=== PATIENT | male | born 1955 | race Caucasian/White ===

== ENCOUNTER 2020-06-14 12:36 | Outpatient (CLI) | payer MEDICARE, SELFPAY ==
[2020-06-14 13:12] LABS: Anion Gap 8 mmol/L (8-16); Blood Urea Nitrogen 11 mg/dL (9-20); Calcium 9.3 mg/dL (8.4-10.2); Carbon Dioxide 25 mmol/L (22-30); Chloride 104 mmol/L (98-107); Estimated Glomerular Filt Rate > 60; Glucose 147 mg/dL (75-110); Potassium 3.4 mmol/L (3.4-5.0); Sodium 137 mmol/L (137-145)
== END 2020-06-14 12:37 | disposition home or self-care (01) ==
PROVIDERS: Anesthesiology; PCP Internal Medicine Gastroenterology; Visit Provider Urology
DX: Z01.818 Encounter for other preprocedural examination (principal); R35.8 Other polyuria
CPT/HCPCS: 36415; 80048

== ENCOUNTER 2020-06-18 00:33 | Outpatient (CLI) | payer MEDICARE, SELFPAY ==
[2020-06-18 21:19] LABS: SARS-CoV-2 RNA PCR Negative
== END 2020-06-18 00:34 | disposition home or self-care (01) ==
LOC: ANHCOVIDDT 00:34
PROVIDERS: PCP Internal Medicine Gastroenterology; Visit Provider Urology
DX: Z01.812 Encounter for preprocedural laboratory examination (principal); Z20.828 Contact with and (suspected) exposure to other viral communicable diseases
CPT/HCPCS: 87635; C9803; U0003

== ENCOUNTER 2020-06-21 00:34 | Day surgery (SDC) | payer MEDICARE, SELFPAY ==
[2020-06-13 14:09] VITALS: BMI 30.8
[2020-06-21] VITALS (7 sets, daily range): BP systolic 94–129; BP diastolic 55–80; PULSE 66–75; RESP 12–20; TEMP 36.2; O2SAT 99–100
--- NOTE | 2020-06-21 09:24 | ECG_ITS ---
Measurements Intervals [place] Rate: 67 P: 52 [place]: 184 QRS: 20 QRSD: 144 T: 52 QT: 457 QTc: 483 Interpretive Statements SINUS RHYTHM RIGHT BUNDLE BRANCH BLOCK ABNORMAL ECG Electronically Signed On 06-21-2020 11:57:52 TECHNOLOGY ENGINEER by Lio Galvez D.O.
[2020-06-21] MEDS: LACTATED RINGERS 1,000 ML 30 ML IV CONT (11:07)
--- NOTE | 2020-06-21 11:46 | WPDANESEPPF ---
Anes - Initial Pre Proc Eval Procedure: Operation Date: 06/21/20 12:30 Proposed Procedures p CO2 Laser Penile Condyloma, Possible Excision - Russel Anderson MD Date/Time: 06/21/20 11:46 Surgeon: Russel Anderson MD Pre Op Diagnosis: penile condyloma Patient Data Age: 64 Gender: M Height: 1.78 m Weight: 96.6 kg Last Vital Signs Temp 36.2 C L 06/21/20 10:35 Pulse 66 06/21/20 10:35 Resp 20 06/21/20 10:35 BP 129/73 06/21/20 10:35 Pulse Ox 99 06/21/20 10:35 Allergies Allergy/AdvReac Type Severity Reaction Status Date / Time No Known Allergies Allergy Unknown Unverified 06/21/20 10:39 Home Medications Medication Instructions Recorded Confirmed Type B-complex with vitamin C [Super B 1 tablet PO DAILY 06/13/20 06/21/20 History Complex + C] folic acid 1 mg PO QAM 06/13/20 06/21/20 History furosemide 20 mg PO QAM 06/13/20 06/21/20 History levothyroxine [Synthroid] 50 mcg PO QAM 06/13/20 06/21/20 History spironolactone 25 mg PO QPM 06/13/20 06/21/20 History spironolactone 50 mg PO QAM 06/13/20 06/21/20 History thiamine mononitrate (vit B1) 100 mg PO QAM 06/13/20 06/21/20 History [Vitamin B-1 (mononitrate)] ECG: SINUS RHYTHM RIGHT BUNDLE BRANCH BLOCK [120+ ms QRS DURATION, UPRIGHT V1, 40+ ms S IN I/aVL/V4/V5/V6] POSSIBLE ANTERIOR MYOCARDIAL INFARCTION , PROBABLY OLD [30 ms Q WAVE IN V3/V4, OR R < 0.2 mV IN V4] NO PREVIOUS ECG AVAILABLE FOR COMPARISON Patient hx anesthesia problems: none Family hx anesthesia problems: none PMFSH Past Medical History Medical History (Updated 06/21/20 @ 11:51 by Pacheco Olsen MD) Cirrhosis Hypothyroidism Obesity Osteoarthritis Tobacco abuse Family History Family History (Updated 09/10/16 @ 14:42 by DOCTOR UNKNOWN) Other Family history of arthritis Family history of gout Family history of malignant neoplasm Family history of seizure disorder Hypertension Social History Social History Smoking packs per day: 1.5 Smoking cigarettes per day: 30.0 Years smoked: 50 Smoking pack-years: 75.00 Smoking status: Former smoker Tobacco type: cigarettes Smoking end date: 05/11/20 Alcohol intake: former Drinks per week: 40 Alcohol use details: STOPPED DRINKING Living arrangements: with family Spiritual care concerns: No Anes - Eval Final PreProcedure Day of Procedure 06/21/20 11:46 Patient weight: obese Heart: regular rate and rhythm Lungs: clear to auscultation and normal air movement Airway: Mallampati scale class II Neurological: alert and oriented Last oral intake: >/= 8 hours ASA classification: III Emergent: no Anesthetic plan: proceed Anesthesia type and monitoring: general LMA Informed Consent: The patient's anesthetic plan and its attendant risks and benefits were discussed with the patient/family/POA. Questions were solicited and answers provided to the satisfaction of the patient/family/POA.
--- NOTE | 2020-06-21 12:00 | SUR.PREOP ---
1155-PT AWARE SURGEON DELAYS SELF ~30 MINUTES.
--- NOTE | 2020-06-21 12:32 | WPDHPUPDATE1 ---
History and Physical Update Update Date/Time: 06/21/20 12:32 History and Physical has been reviewed, including an updated exam of the patient. There are NO changes in the patient's condition. Risks, benefits, and alternatives have been discussed and questions answered. Patient agrees to proceed with procedure.
[2020-06-21] MEDS: ceFAZolin 2 GM/D5W 50 ML 2 GM/50 ML BAG IVPB (13:15)
[2020-06-21] MEDS: LIDOCAINE HCL 1% LOCAL INJ 10 ML VIAL 30 ML INFILTRATE (13:31)
[2020-06-21] MEDS: SILVER SULFADIAZINE 1% CR 50 GM JAR (*BKC) 1 APPLIC TOPICAL (13:56)
--- NOTE | 2020-06-21 14:00 | PM.PROC ---
Procedure Note - Detailed Date of procedure: 06/21/20 Pre-op diagnosis: penile condyloma Post-op diagnosis: same Procedure performed: Excision of large penile condyloma 0.5 cm as well as CO2 laser of smaller condyloma Description of procedure: Patient is taken the operative suite and correctly identified. Once anesthesia was obtained was prepped draped in a sterile fashion. He has multiple small lesions that were taken care of using a CO2 laser. Smoke evacuator was then used during the whole case. He has 2 larger lesions were on the dorsal aspect near the penoscrotal junction. We went ahead and used the CO2 laser of the smaller 1 which was about 1 cm. We then excised the larger 1. Fulgurated the base. Three O chromic was used to reapproximate some of the skin edges. We then placed several Vulin cream on all the areas that were fulgurated. 1% lidocaine was then used to do a dorsal penile block. Tolerated procedure well without any complications taken recovery stable condition. Will see him in the office in 3-4 weeks time. Anesthesia: GLMA Surgeon: Russel Anderson MD Drains: No Packing: No Pathology: yes Complications: No immediate complications Condition: stable Disposition: PACU
== END 2020-06-21 15:24 | disposition home or self-care (01) ==
PROVIDERS: PCP Internal Medicine Gastroenterology; Visit Provider Urology
PROC: (CPT 54057; principal; 2020-06-21 12:30)
DX: A63.0 Anogenital (venereal) warts (principal); E03.9 Hypothyroidism, unspecified; K74.60 Unspecified cirrhosis of liver; E66.9 Obesity, unspecified; Z68.30 Body mass index [BMI] 30.0-30.9, adult; Z87.891 Personal history of nicotine dependence
CPT/HCPCS: 54057; 11420; 36415; 80048; 87635; 88305; 93005; A9270; C9803; J0690; J2250; J2405; J2704; J3010; J7120; U0003